=== PATIENT | female | born 1975 | race African-American/Black ===

== ENCOUNTER 2022-03-18 12:13 | Emergency (ER) | payer OTHER ==
[~2022-03-18] VITALS: Ht 170.2 cm; Wt 92.9 kg
[2022-03-18] MEDS ORDERED: traMADol HCL 50 MG TAB PO ONE (13:45)
[2022-03-18 16:35] VITALS: BP 169/88
== END 2022-03-18 16:38 | disposition home or self-care (01) ==
LOC: ER 12:13
DX: S09.90XA Unspecified injury of head, initial encounter (principal); M79.18 Myalgia, other site; W07.XXXA Fall from chair, initial encounter; Y93.89 Activity, other specified; Y92.89 Other specified places as the place of occurrence of the external cause; Y99.8 Other external cause status
CPT/HCPCS: 70450; 72125